=== PATIENT | male | born 1995 | race Caucasian/White ===

== ENCOUNTER 2016-11-05 01:47 | Emergency (ER) | payer OTHER ==
[2016-11-05] MEDS ORDERED: LORazepam 1MG TABLET PO ONE (02:30)
[2016-11-05] MEDS ORDERED: LORazepam 1MG TABLET ONE (02:43)
[2016-11-05 03:34] VITALS: BP 117/56
== END 2016-11-05 03:39 | disposition home or self-care (01) ==
LOC: ED 03:05
DX: F41.1 Generalized anxiety disorder (principal); R06.00 Dyspnea, unspecified
CPT/HCPCS: 71020; 93005; 99284

== ENCOUNTER 2016-11-06 22:04 | Emergency (ER) | payer OTHER ==
[~2016-11-06] VITALS: Ht 175.3 cm; Wt 70.5 kg
[2016-11-06 22:07] VITALS: BP 131/75
[2016-11-06 22:42] LABS: HEMATOCRIT 52.8 % (39.2-51.8); WHITE BLOOD COUNT 10.8 x10^3/uL (3.4-10)
[2016-11-06 22:53] LABS: ASPARTATE AMINO TRANSFERASE 20 U/L (15-37); BLOOD UREA NITROGEN 18 mg/dL (7-18)
[2016-11-06 23:05] LABS: ACETAMINOPHEN < 2 mcg/mL (10-30)
[2016-11-07 00:07] LABS: DAU SCREEN DISCLAIMER
== END 2016-11-07 01:53 | disposition home or self-care (01) ==
LOC: ED 23:02
DX: F32.9 Major depressive disorder, single episode, unspecified (principal); F14.10 Cocaine abuse, uncomplicated; F41.1 Generalized anxiety disorder; Z88.6 Allergy status to analgesic agent; Z88.8 Allergy status to other drugs, medicaments and biological substances
CPT/HCPCS: 36415; 80053; 80307; 80329; 84443; 85025; 85610; 85730; 99284; G0479; G0480